=== PATIENT | male | born 1995 | race Two or more races ===

== ENCOUNTER 2017-03-05 14:58 | Emergency (ER) | payer MEDICAID ==
[~2017-03-05] VITALS: Ht 172.7 cm; Wt 80.7 kg
[2017-03-05] MEDS ORDERED: IBUPROFEN600 MG ORAL (16:30)
[2017-03-05 16:50] VITALS: BP 137/65
--- NOTE | 2017-03-05 17:48 | Emergency Room Report ---
History of Present Illness General Chief Complaint: Lower Extremity Injury Source: Patient Present Illness HPI 21-year-old male presents ED complaining of right knee pain. States that he was playing soccer today and another individual slid into him and he fell landing forward on his right knee. Denies any other injuries. Patient notes pain to the right knee. Sharp. 8/10. Nonradiating. Worse with bending. No other aggravating relieving factors. Denies any other specific symptoms Allergies: Coded Allergies: No Known Allergies (Unverified , 03/05/17) Patient History Past Medical History: none Past Surgical History: none Pertinent Family History: none Social History: Denies: alcohol use, drug use, smoking Immunizations: UTD Reviewed Nursing Documentation: PMH: Agreed, PSxH: Agreed Nursing Documentation-PMH Past Medical History: No History, Except For Review of Systems All Other Systems: negative except mentioned in HPI Physical Exam Vital Signs Date Time Temp Pulse Resp B/P Pulse Ox O2 Delivery O2 Flow Rate FiO2 03/05/17 15:09 97.9 70 14 137/65 99 Room Air Sp02 EP Interpretation: reviewed, normal General Appearance: no apparent distress, alert, GCS 15, non-toxic Head: normocephalic, atraumatic Eyes: bilateral eye PERRL, bilateral eye normal inspection ENT: hearing grossly normal, normal pharynx, no angioedema, normal voice Neck: full range of motion, supple/symm/no masses Respiratory: chest non-tender, lungs clear, normal breath sounds, speaking full sentences Cardiovascular #1: regular rate, rhythm, no edema Cardiovascular #2: 2+ carotid (R), 2+ carotid (L), 2+ radial (R), 2+ radial (L) , 2+ dorsalis pedis (R), 2+ dorsalis pedis (L) Gastrointestinal: normal bowel sounds, non tender, soft, non-distended, no guarding, no rebound Rectal: deferred Genitourinary: normal inspection, no CVA tenderness Musculoskeletal: back normal, gait/station normal, normal range of motion, other - no joint laxity, tender Neurologic: alert, oriented x3, responsive, motor strength/tone normal, sensory intact, speech normal Psychiatric: judgement/insight normal, memory normal, mood/affect normal, no suicidal/homicidal ideation Reflexes: 3+ bicep (R), 3+ bicep (L), 3+ tricep (R), 3+ tricep (L), 3+ knee (R) , 3+ knee (L) Skin: normal color, no rash, warm/dry, well hydrated Lymphatic: no adenopathy Procedures Splinting Splinting : Consent: Verbal Pre-Made Type: DONITA wrap - R knee Pre-Proc Neuro Vasc Exam: normal Post-Proc Neuro Vasc Exam: normal Patient Tolerated: Well Complications: None Medical Decision Making Diagnostic Impression: Primary Impression: Knee sprain Qualified Codes: S83.91XA - Sprain of unspecified site of right knee, initial encounter ER Course Hospital Course 21-year-old M presents to ED complaining of R knee pain s/p trip and fall Differential diagnoses include: Fracture, dislocation, sprain, contusion Clinical course Patient placed on stretcher. After initial history and physical, I ordered Xrays of R knee. patient declined pain meds Xrays prelim read shows no acute fracture/dislocation. placed in donita wrap Diagnosis - knee sprain Stable and discharged to home with prescription for Motrin. apply ice, keep elevated. weight bear as tolerated. Followup with PMD. Return to ED if symptoms recur or worsen Other X-Ray Diagnostic Results Other X-Ray Diagnostic Results : X-Ray ordered: R knee # of Views/Limited Vs Complete: 3 View Indication: Pain EP Interpretation: Yes Interpretation: no dislocation, no soft tissue swelling, no fractures Impression: No acute disease Interpreting ER Provider: Electronically signed by Sincere Arreguin MD Last Vital Signs Date Time Temp Pulse Resp B/P Pulse Ox O2 Delivery O2 Flow Rate FiO2 03/05/17 16:50 97.9 65 14 137/65 99 Room Air Status: improved Disposition: HOME, SELF-CARE Condition: Stable Scripts Ibuprofen* (MOTRIN*) 600 Mg Tablet 600 MG ORAL Q8H Y for For Pain, #30 TAB 0 Refills Prov: SINCERE ARREGUIN M.D. 03/05/17 Referrals: [facility] Patient Instructions: Knee Sprain, [id number] SINCERE ARREGUIN M.D. Mar 05, 2017 17:48
== END 2017-03-05 16:53 | disposition home or self-care (01) ==
LOC: EMR 15:27
DX: S83.91XA Sprain of unspecified site of right knee, initial encounter (principal); W03.XXXA Other fall on same level due to collision with another person, initial encounter; Y93.66 Activity, soccer; Y92.9 Unspecified place or not applicable
CPT/HCPCS: 29530; 99283

== ENCOUNTER 2019-08-27 08:04 | Emergency (ER) | payer MEDICAID ==
[~2019-08-27] VITALS: Ht 170.2 cm; Wt 72.6 kg
[~2019-08-27 08:04] MED LIST: IBUPROFEN600 MG ORAL
[2019-08-27 08:20] VITALS: BP 122/69
[2019-08-27] MEDS ORDERED: Ketorolac 30mg Inj IM STA (08:38)
[2019-08-27] MEDS ORDERED: oxyCODONE HCL/Acetaminophen 5/325mg ORAL ONE (08:45)
--- NOTE | 2019-08-27 08:48 | Emergency Room Report ---
History of Present Illness General Chief Complaint: General Complaint Source: Patient Present Illness HPI Patient presents with 2 days of left posterior chest pain that is severe. It is worse when he moves about and breathes deeply. When it began he felt strange and had difficulty breathing yesterday. He was working out the day before. On Friday he smoked cannabis from a pen. He tasted some of the plastic and is concerned that this may have affected his breathing. He denies exposure to CBD oil or vaping. No family history of cardiac disease. No fevers, chills, sore throat, palpitations, nausea, vomiting, diarrhea, dysuria, abdominal pain, rashes, depression, visual changes, headache. Allergies: Coded Allergies: No Known Allergies (Unverified , 03/05/17) Patient History Past Medical History: see triage record Social History: Reports: drug use - THC; Denies: smoking, alcohol use Social History Narrative IT core analyst Reviewed Nursing Documentation: PMH: Agreed; PSxH: Agreed Nursing Documentation-PMH Past Medical History: No History, Except For Review of Systems All Other Systems: negative except mentioned in HPI Physical Exam Vital Signs Date Time Temp Pulse Resp B/P (MAP) Pulse Ox O2 Delivery O2 Flow Rate FiO2 08/27/19 08:09 97.7 63 16 122/69 (86) 100 Room Air Sp02 EP Interpretation: reviewed, normal General Appearance: well appearing, no apparent distress, GCS 15, non-toxic Head: normocephalic Eyes: bilateral eye normal inspection, bilateral eye PERRL, bilateral eye EOMI ENT: moist mucus membranes Neck: full range of motion, supple Respiratory: lungs clear, normal breath sounds, other - Posterior chest wall tenderness medial to scapula re-creates pain Cardiovascular #1: regular rate, rhythm, no edema, no murmur Cardiovascular #2: 2+ radial (R) Gastrointestinal: normal inspection, normal bowel sounds, non tender, no mass, non-distended Genitourinary: no CVA tenderness Musculoskeletal: normal range of motion, gait/station normal, tender - Left medial scapular area Neurologic: alert, oriented x3, grossly normal Psychiatric: anxious - But calm Skin: no rash, warm/dry Medical Decision Making Diagnostic Impression: Primary Impression: Muscle spasm ER Course Patient presents with left posterior chest pain. Differential includes pericarditis, pneumothorax, muscle spasm amongst others. Clinically this is a muscle spasm however we may have to exclude possible lung injury and also check an EKG. Patient be treated with Toradol and Percocet. EKG without injury. Chest x-ray normal. Patient improved with treatment. Discussed findings and assessment. Also discussed treatment plan with patient. Advised the need for follow-up. No medical emergency at this time. Patient stable for outpatient observation and treatment. EKG Diagnostic Results Rate: normal Rhythm: NSR ST Segments: no acute changes Rhythm Strip Diag. Results EP Interpretation: yes Rhythm: NSR, no PVC's, no ectopy Chest X-Ray Diagnostic Results Chest X-Ray Diagnostic Results : Chest X-Ray Ordered: Yes # of Views/Limited/Complete: 1 View Indication: Chest Pain EP Interpretation: Yes Interpretation: no consolidation, no effusion, no pneumothorax Impression: No acute disease Electronically Signed by: Electronically signed by Luke Quach MD Last Vital Signs Date Time Temp Pulse Resp B/P (MAP) Pulse Ox O2 Delivery O2 Flow Rate FiO2 08/27/19 09:56 97.5 85 16 124/75 100 Room Air Status: improved Disposition: HOME, SELF-CARE Condition: Improved Scripts Ibuprofen* (MOTRIN*) 600 Mg Tablet 600 MG ORAL Q6H PRN for For Pain, #20 TAB Prov: Luke Quach MD 08/27/19 Hydrocodone Bit/Acetaminophen 5-325* (NORCO 5-325*) 1 Each Tablet 1 TAB ORAL Q6H PRN for For Pain, #8 TAB 0 Refills Prov: Luke Quach MD 08/27/19 Referrals: [facility],REFERRING (PCP) Luke Quach MD Aug 27, 2019 08:48
[2019-08-27] MEDS ORDERED: IBUPROFEN600 MG ORAL (09:42)
[2019-08-27] MEDS ORDERED: NORCO 5-325 TA1 EACH ORAL (09:42)
[2019-08-27 09:56] VITALS: BP 124/75
--- NOTE | 2019-08-27 11:27 | Diagnostic Imaging Report ---
Indication: Chest pain Comparison: None A single view chest radiograph was obtained. Findings: Cardiomediastinal appearance is within normal limits for age. The lungs are clear. Pulmonary vascularity is appropriate. The diaphragmatic contour is smooth and costophrenic angles are sharp. No pleural effusions are identified. The bones are unremarkable. Impression: No acute findings
== END 2019-08-27 09:57 | disposition home or self-care (01) ==
LOC: EMR 08:28
DX: M62.838 Other muscle spasm (principal); F12.90 Cannabis use, unspecified, uncomplicated
CPT/HCPCS: 71045; 93005; 96372; J1885; Z7502; 99283